=== PATIENT | male | born 1975 | race African-American/Black ===

== ENCOUNTER 2017-10-28 22:31 | Emergency (ER) | payer OTHER ==
[~2017-10-28] VITALS: Ht 162.6 cm; Wt 120.9 kg
[2017-10-28] MEDS ORDERED: HYDR25TA PO (22:41)
[2017-10-28] MEDS ORDERED: OLAN10TA3 PO (22:41)
[2017-10-28] MEDS ORDERED: METF500T4 PO (22:41)
[2017-10-28 23:09] LABS: GLUCOSE,POINT OF CARE 145 MG/DL (70-110)
[2017-10-29 01:35] VITALS: BP 130/84
== END 2017-10-29 02:13 | disposition home or self-care (01) ==
LOC: EMS 22:33
DX: S62.664A Nondisplaced fracture of distal phalanx of right ring finger, initial encounter for closed fracture (principal); E11.9 Type 2 diabetes mellitus without complications; I10 Essential (primary) hypertension; Y08.89XA Assault by other specified means, initial encounter; Y93.89 Activity, other specified; Y92.89 Other specified places as the place of occurrence of the external cause; Y99.8 Other external cause status
CPT/HCPCS: 82962; 99284

== ENCOUNTER 2017-11-21 23:56 | Emergency (ER) | payer OTHER ==
[~2017-11-21] VITALS: Ht 162.6 cm; Wt 109.5 kg
[~2017-11-21 23:56] MED LIST: HYDR25TA PO; METF500T4 PO; OLAN10TA3 PO
[2017-11-22 00:22] LABS: GLUCOSE,POINT OF CARE 124 MG/DL (70-110)
[2017-11-22] MEDS ORDERED: CYCL10 PO (00:42)
[2017-11-22 01:05] LABS: ANION GAP 6 mmol/L (8-16); CALCIUM, TOTAL 9.1 mg/dL (8.8-10.5); CARBON DIOXIDE 32 mmol/L (22-29); CHLORIDE 103 mmol/L (98-107); CREATININE 1.05 mg/dL (0.60-1.30); GLOMERULAR FILTR. RATE CALC > 60 mL/min (>60); GLUCOSE,RANDOM 138 mg/dL (70-110); POTASSIUM 3.9 mmol/L (3.5-5.1); SODIUM SERUM 141 mmol/L (136-145); UREA NITROGEN, BLOOD 15 mg/dL (7-18)
[2017-11-22 01:07] LABS: BASOPHILS % (AUTO) 0.4 % (0.0-2.0); EOSINOPHILS % (AUTO) 4.5 % (1.0-6.0); HEMATOCRIT 36.9 % (41-53); HEMOGLOBIN 11.9 g/dL (13.5-17.5); LYMPHOCYTES # (AUTO) 1.6 K/uL (1.0-4.8); LYMPHOCYTES % (AUTO) 20.3 % (22.0-44.0); MEAN CORPUSCULAR HEMOGLOBIN 24.4 pg (26.0-34.0); MEAN CORPUSCULAR HGB CONC 32.4 G/dL (31.0-37.0); MEAN CORPUSCULAR VOLUME 75 fL (80-100); MONOCYTES # (AUTO) 0.8 K/uL (0.1-1.0); NEUTROPHILS # (AUTO) 5.1 K/uL (1.8-7.7); NEUTROPHILS % (AUTO) 64.8 % (40.0-70.0); PLATELET COUNT (AUTO) 276 K/uL (150-450); RED CELL DISTRIBUTION WIDTH 13.7 % (11.5-14.5)
[2017-11-22 01:10] LABS: ALANINE AMINOTRANSFERASE 29 U/L (12-78); ALBUMIN 3.3 g/dL (3.4-5.0); ALKALINE PHOSPHATASE 115 U/L (46-116); ASPARTATE AMINOTRANSFERASE 23 U/L (15-37); BILIRUBIN,TOTAL 0.2 mg/dL (0.1-1.0); LIPASE 68 U/L (73-393); TOTAL PROTEIN, SERUM 7.2 g/dL (6.4-8.2)
[2017-11-22] MEDS: ACETAMINOPHEN 500 MG TABLET PO ONE (02:08)
[2017-11-22] MEDS: KETOROLAC TROMETHAMINE 60 MG/2 ML VIAL IM ONE (02:08)
[2017-11-22 02:57] VITALS: BP 132/82
== END 2017-11-22 03:14 | disposition home or self-care (01) ==
LOC: EMS 23:58
DX: R10.9 Unspecified abdominal pain (principal); M54.9 Dorsalgia, unspecified; E11.9 Type 2 diabetes mellitus without complications; I10 Essential (primary) hypertension
CPT/HCPCS: 36415; 80053; 82962; 83690; 85025; 96372; 99284; J1885